=== PATIENT | male | born 1965 | race Caucasian/White ===

== ENCOUNTER 2017-08-05 10:01 | Inpatient (IN) | payer OTHER ==
[~2017-08-05] VITALS: Ht 170.2 cm; Wt 90.0 kg
[2017-08-05 10:05] VITALS: Ht 170.2 cm; Wt 90.0 kg
[2017-08-05 11:52] LABS: microscopic required? NO
[2017-08-05 12:04] LABS: urine erythrocyte NEGATIVE (NEGATIVE)
[2017-08-05 12:14] LABS: AMPHETAMINE QUAL UR NONE DETECTED (NEG <=1000)
[2017-08-05 13:02] LABS: BASOPHIL % 1.1 % (0-2); PLATELET COUNT 299 x10^3mcL (130-400); RED CELL DISTRIBUTION WIDTH 13.6 % (11.5-14.5)
[2017-08-05 13:56] LABS: ALBUMIN 3.7 g/dL (3.4-5.0); ALKALINE PHOSPHATASE 96 U/L (46-116); ALT/SGPT 61 U/L (16-63); AMYLASE 64 U/L (25-115); AST/SGOT 36 U/L (15-37); CARBON DIOXIDE 23.7 mmol/L (21-32); CHLORIDE SERUM 104 mmol/L (98-107); CHOLESTEROL 128 mg/dL (<200); CREATININE SERUM 0.8 mg/dL (0.7-1.3); GFR1 > 60 mL/min; GLUCOSE SERUM 101 mg/dL (74-106); HDL CHOLESTEROL 32 mg/dL (40-60); LIPASE 139 IU/L (73-393); POTASSIUM SERUM 4.2 mmol/L (3.5-5.1); SODIUM SERUM 138 mmol/L (136-145); TOTAL PROTEIN, SERUM 7.7 g/dL (6.4-8.2)
[2017-08-05] MEDS ORDERED: CARVEDILOL25 M1 PO (14:04)
[2017-08-05] MEDS ORDERED: PRILOSEC OTC20 M1 PO (14:04)
[2017-08-05] MEDS ORDERED: ASPIR 8181 MG PO (14:04)
[2017-08-05 14:07] LABS: BILIRUBIN TOTAL 0.3 mg/dL (0.20-1.00); CALCIUM 8.7 mg/dL (8.5-10.1)
[2017-08-05 15:24] LABS: T3 TOTAL 2.07 ng/mL
[2017-08-05 15:26] LABS: MAGNESIUM 2.2 mg/dL (1.8-2.4)
[2017-08-05 15:36] LABS: FREE T4 0.85 ng/dL (0.76-1.46); FREE THYROXINE INDEX 2.3 ug/dL (1.4-4.5)
[2017-08-05 15:40] VITALS: BP 143/100
[2017-08-05 20:28] VITALS: BP 152/89
[2017-08-06 06:03] VITALS: BP 135/85
[2017-08-06 06:29] LABS: CALCIUM 8.9 mg/dL (8.5-10.1); CARBON DIOXIDE 23.6 mmol/L (21-32); CHLORIDE SERUM 105 mmol/L (98-107); CREATININE SERUM 0.9 mg/dL (0.7-1.3); GFR1 > 60 mL/min; GLUCOSE SERUM 265 mg/dL (74-106); POTASSIUM SERUM 4.1 mmol/L (3.5-5.1); SODIUM SERUM 139 mmol/L (136-145)
[2017-08-06 07:27] LABS: PLATELET COUNT 335 x10^3mcL (130-400); RED CELL DISTRIBUTION WIDTH 13.3 % (11.5-14.5)
[2017-08-06 08:34] LABS: BAND NEUTROPHIL 1 % (0-10); BASOPHIL 0 % (0-2); MONOCYTE 1 % (0-7); SEGMENTED NEUTROPHILS 88 % (37-75)
[2017-08-06 08:35] LABS: PLATELET MORPHOLOGY PLATELETS NORMAL; rbc morphology (normal/abnorm) NORMAL (NORMAL)
[2017-08-06] MEDS ORDERED: LIPI20 PO (10:01)
[2017-08-06] MEDS ORDERED: METHOCARBAMOL500 MG PO (10:01)
[2017-08-06] MEDS ORDERED: ZES5 PO (10:02)
[2017-08-06] MEDS ORDERED: NAPROXEN SODIU550 MG PO (10:05)
[2017-08-06 10:13] VITALS: BP 127/75
[2017-08-06 10:17] VITALS: BP 139/87
[2017-08-06 12:19] LABS: PLATELET COUNT 327 x10^3mcL (130-400); RED CELL DISTRIBUTION WIDTH 13.3 % (11.5-14.5); SEGMENTED NEUTROPHILS 94 % (37-75)
[2017-08-06 12:20] LABS: BAND NEUTROPHIL 3 % (0-10); PLATELET MORPHOLOGY N; rbc morphology (normal/abnorm) ABNORMAL (NORMAL)
[2017-08-06] MEDS ORDERED: HYDROCHLOROTH12.5 M2 PO (12:20)
== END 2017-08-06 12:22 | disposition left against medical advice (07) | DRG 203 ==
LOC: ED 10:01 → DU 13:42
PROVIDERS: Emergency Medicine; Family Medicine
DX: M94.0 Chondrocostal junction syndrome [Tietze] (principal); I10 Essential (primary) hypertension; F17.210 Nicotine dependence, cigarettes, uncomplicated; K21.9 Gastro-esophageal reflux disease without esophagitis; Z53.21 Procedure and treatment not carried out due to patient leaving prior to being seen by health care provider; Z79.82 Long term (current) use of aspirin; Z68.31 Body mass index [BMI] 31.0-31.9, adult; Z71.6 Tobacco abuse counseling; Z23 Encounter for immunization
CPT/HCPCS: 83880; 84439; 90658; 99406; J1100; J1885; J7030; Q0092

== ENCOUNTER 2018-01-02 08:18 | Emergency (ER) | payer OTHER ==
[~2018-01-02] VITALS: Ht 170.2 cm; Wt 89.8 kg
[~2018-01-02 08:18] MED LIST: ASPIR 8181 MG PO; CARVEDILOL25 M1 PO; HYDROCHLOROTH12.5 M2 PO; LIPI20 PO; METHOCARBAMOL500 MG PO; NAPROXEN SODIU550 MG PO; PRILOSEC OTC20 M1 PO; ZES5 PO
[2018-01-02 08:22] VITALS: Ht 170.2 cm; Wt 89.8 kg
[2018-01-02 08:46] LABS: microscopic required? NO
[2018-01-02 08:55] LABS: urine erythrocyte NEGATIVE (NEGATIVE)
[2018-01-02 09:06] LABS: BASOPHIL % 1.8 % (0-2); PLATELET COUNT 309 x10^3mcL (130-400); RED CELL DISTRIBUTION WIDTH 12.6 % (11.5-14.5)
[2018-01-02 09:07] LABS: CALCIUM 8.9 mg/dL (8.5-10.1); CARBON DIOXIDE 26.5 mmol/L (21-32); CHLORIDE SERUM 105 mmol/L (98-107); CREATININE SERUM 0.8 mg/dL (0.7-1.3); GFR1 > 60 mL/min; GLUCOSE SERUM 114 mg/dL (74-106); SODIUM SERUM 135 mmol/L (136-145)
[2018-01-02 09:12] LABS: ALBUMIN 3.7 g/dL (3.4-5.0); ALKALINE PHOSPHATASE 118 U/L (46-116); ALT/SGPT 71 U/L (16-63); AMYLASE 74 U/L (25-115); AST/SGOT 51 U/L (15-37); BILIRUBIN TOTAL 0.6 mg/dL (0.20-1.00); LIPASE 187 IU/L (73-393)
[2018-01-02 10:50] VITALS: BP 148/106
== END 2018-01-02 10:50 | disposition home or self-care (01) ==
LOC: ED 08:18
PROVIDERS: Emergency Medicine
DX: R51 Headache (principal); R10.9 Unspecified abdominal pain; I10 Essential (primary) hypertension; F17.210 Nicotine dependence, cigarettes, uncomplicated
CPT/HCPCS: 83880; 99406; J1200; J2765; J7030

== ENCOUNTER 2018-01-22 04:41 | Inpatient (IN) | payer OTHER ==
[~2018-01-22] VITALS: Ht 170.2 cm; Wt 89.8 kg
[2018-01-22 04:44] VITALS: Ht 170.2 cm; Wt 89.8 kg
[2018-01-22 05:26] LABS: BASOPHIL % 0.7 % (0-2); PLATELET COUNT 296 x10^3mcL (130-400); RED CELL DISTRIBUTION WIDTH 13.3 % (11.5-14.5)
[2018-01-22 05:41] LABS: CALCIUM 9.1 mg/dL (8.5-10.1); CARBON DIOXIDE 27.6 mmol/L (21-32); CHLORIDE SERUM 107 mmol/L (98-107); CREATININE SERUM 0.9 mg/dL (0.7-1.3); GFR1 > 60 mL/min; GLUCOSE SERUM 100 mg/dL (74-106); SODIUM SERUM 140 mmol/L (136-145)
[2018-01-22 05:42] LABS: AMPHETAMINE QUAL UR NONE DETECTED (See below)
[2018-01-22 05:46] LABS: ALKALINE PHOSPHATASE 114 U/L (46-116); ALT/SGPT 68 U/L (16-63); AST/SGOT 53 U/L (15-37); BILIRUBIN TOTAL 0.33 mg/dL (0.20-1.00); TOTAL PROTEIN, SERUM 7.1 g/dL (6.4-8.2); TRIGLYCERIDES 159 mg/dL (<150)
[2018-01-22 05:50] LABS: ALBUMIN 3.2 g/dL (3.4-5.0); CHOLESTEROL 129 mg/dL (<200); HDL CHOLESTEROL 32 mg/dL (40-60)
[2018-01-22] MEDS ORDERED: LOSARTAN POTASS50 M1 PO (06:47)
[2018-01-22 07:06] LABS: MAGNESIUM 2.2 mg/dL (1.8-2.4); PHOSPHOROUS 3.6 mg/dL (2.5-4.9)
[2018-01-22 07:13] LABS: T3 TOTAL 2.25 ng/mL
[2018-01-22 07:18] LABS: FREE T4 1.02 ng/dL (0.76-1.46); FREE THYROXINE INDEX 2.9 ug/dL (1.4-4.5)
[2018-01-22 07:52] VITALS: BP 134/94
[2018-01-22 13:33] VITALS: BP 99/55
[2018-01-22 13:44] LABS: microscopic required? NO
[2018-01-22 13:55] LABS: urine erythrocyte NEGATIVE (NEGATIVE)
[2018-01-22 16:59] VITALS: BP 136/94
[2018-01-22 17:37] VITALS: BP 136/94
== END 2018-01-22 19:28 | disposition left against medical advice (07) | DRG 203 ==
LOC: ED 04:41 → DU 06:14
PROVIDERS: Emergency Medicine; Internal Medicine
DX: M94.0 Chondrocostal junction syndrome [Tietze] (principal); E46 Unspecified protein-calorie malnutrition; F17.210 Nicotine dependence, cigarettes, uncomplicated; G89.29 Other chronic pain; M54.2 Cervicalgia; I10 Essential (primary) hypertension; Z53.21 Procedure and treatment not carried out due to patient leaving prior to being seen by health care provider; R74.0 Nonspecific elevation of levels of transaminase and lactic acid dehydrogenase [LDH]; K21.9 Gastro-esophageal reflux disease without esophagitis; F19.10 Other psychoactive substance abuse, uncomplicated; Z90.49 Acquired absence of other specified parts of digestive tract; Z82.49 Family history of ischemic heart disease and other diseases of the circulatory system; Z68.31 Body mass index [BMI] 31.0-31.9, adult
CPT/HCPCS: 83880; 84439; 99406; J7030; Q0092

== ENCOUNTER 2020-03-11 00:07 | Emergency (ER) | payer OTHER ==
[~2020-03-11] VITALS: Ht 170.2 cm; Wt 91.6 kg
[~2020-03-11 00:07] MED LIST changes: +LOSARTAN POTASS50 M1 PO
[2020-03-11 00:17] VITALS: Ht 170.2 cm; Wt 91.6 kg
[2020-03-11 02:37] VITALS: BP 130/84
== END 2020-03-11 02:37 | disposition home or self-care (01) ==
LOC: ED 00:07
DX: S80.11XA Contusion of right lower leg, initial encounter (principal); I10 Essential (primary) hypertension; Z98.890 Other specified postprocedural states; V49.9XXA Car occupant (driver) (passenger) injured in unspecified traffic accident, initial encounter; Y93.I9 Activity, other involving external motion; Y92.413 State road as the place of occurrence of the external cause; Y99.8 Other external cause status